=== PATIENT | male | born 1990 | race Caucasian/White ===

== ENCOUNTER 2022-08-01 20:02 | Emergency (ER) | payer OTHER ==
[2022-08-01 20:32] VITALS: BP 135/92; PULSE 108; RESP 16; TEMP 98.9; BMI 36.8
[2022-08-01] MEDS ORDERED: SODIUM CHLORIDE 1,000 ML IV ONE (21:00)
[2022-08-01] MEDS ORDERED: ONDANSETRON 4 MG/2 ML VIAL IVPUSH ONE (21:03)
[2022-08-01] MEDS ORDERED: ONDANSETRON 4 MG/2 ML VIAL ONE (21:17)
[2022-08-01 21:40] LABS: HEMATOCRIT 43.5 % (35.4-49); HEMOGLOBIN 15.5 G/dL (11.7-16.9); MCH 28.4 pg (25.7-33.7); MCHC 35.5 g/dl (32.0-35.9); MEAN CELL VOLUME 79.9 fl (80-96); MEAN PLT VOLUME 9.1 fl (7.5-11.1); PLATELET COUNT 164.2 10^3/uL (134-434); RBC 5.44 10^6/uL (4.00-5.60); RDW 13.8 % (11.9-15.9); WHITE BLOOD COUNT 6.2 10^3/uL (4.0-10.8)
[2022-08-01 21:48] LABS: ALBUMIN 4.1 g/dl (3.4-5.0); BILIRUBIN,TOTAL 1.1 mg/dl (0.2-1); CALCIUM 9.3 mg/dl (8.5-10); TOT PROT 7.4 g/dl (6.4-8.2)
== END 2022-08-01 22:29 | disposition home or self-care (01) ==
LOC: FER 20:02
PROC: 3E033GC Introduction of Other Therapeutic Substance into Peripheral Vein, Percutaneous Approach (ICD-10-PCS; principal; 2022-08-01)
DX: A08.4 Viral intestinal infection, unspecified (principal)
CPT/HCPCS: 36415; 80053; 85027; 99284-25

== ENCOUNTER 2023-06-16 11:07 | Emergency (ER) | payer OTHER ==
[2023-06-16 11:53] VITALS: BP 129/71; PULSE 73; RESP 20; TEMP 98.3; BMI 31.3
[2023-06-16] MEDS ORDERED: ACETAMINOPHEN 325 MG TABLET (FP) PO ONE (11:54)
[2023-06-16] MEDS ORDERED: ACETAMINOPHEN 325 MG TABLET (FP) ONE (12:04)
== END 2023-06-16 14:02 | disposition home or self-care (01) ==
LOC: FER 11:07
DX: M79.671 Pain in right foot (principal); R22.41 Localized swelling, mass and lump, right lower limb
CPT/HCPCS: 73630-TC-RT-FY; 99283-25